=== PATIENT | male | born 1945 | race Caucasian/White ===

== ENCOUNTER 2018-05-09 14:42 | Outpatient (CLI) | payer OTHER | END 2018-05-09 15:02 | disposition short-term general hospital (02) | LOC: AMBL 14:42 | PROVIDERS: ATTEND Emergency Medicine | DX: S72.002A Fracture of unspecified part of neck of left femur, initial encounter for closed fracture (principal); W19.XXXA Unspecified fall, initial encounter; Y92.129 Unspecified place in nursing home as the place of occurrence of the external cause ==